=== PATIENT | male | born 1975 | race Caucasian/White ===

== ENCOUNTER 2020-06-15 10:31 | Outpatient (REF) | payer MEDICAID, SELFPAY | END 2020-06-15 10:32 | disposition home or self-care (01) | LOC: HO.LAB 10:31 | PROVIDERS: Visit Provider Internal Medicine | DX: Z20.822 Contact with and (suspected) exposure to COVID-19 (principal) | CPT/HCPCS: 36415; C9803; U0003 ==

== ENCOUNTER 2022-05-23 19:31 | Emergency (ER) | payer MEDICAID, SELFPAY ==
[2022-05-23 19:34] VITALS: BP 146/88; PULSE 74; RESP 18; O2SAT 100; BMI 24.1
--- NOTE | 2022-05-23 19:36 | ED.GENADULT ---
HPI - General Adult General Chief complaint: Abdominal Pain Stated complaint: Abdominal pain Time Seen by Provider: 05/23/22 21:08 Related Data Previous Rx's Medication Instructions Recorded docusate sodium 100 mg capsule 100 mg PO BID #20 caps 05/23/22 (Colace) ibuprofen 800 mg tablet 800 mg PO Q8H PRN pain #30 tabs 05/23/22 Allergies Allergy/AdvReac Type Severity Reaction Status Date / Time No Known Allergies Allergy Unverified 02/13/20 16:03 [facility] Social History Social History Alcohol intake: former Smoked in Last 30 Days: Yes Advance Directives: No Advance Directives Information Provided: No Physical Exam ED Vital Signs: BMI result Body Mass Index 24.1 Course Course Course Narrative: RME; Patient presents to the ED for LLQ abdominal pain. patient is well appearing. Medications Administered Discontinued Medications Generic Name Dose Route Start Last Admin Trade Name Freq PRN Reason Stop Dose Admin Ketorolac Tromethamine 30 mg 05/23/22 22:05 05/23/22 22:09 Ketorolac Tromethamine 30 Mg/Ml Vial IM 05/23/22 22:06 30 mg ONCE ONE Administration Medical Decision Making Lab Data 05/23/22 20:24 05/23/22 20:24 Labs: Lab Results 05/23/22 05/23/22 05/23/22 Range/Units 20:24 20:24 20:24 WBC 7.1 (4.8-10.8) X10*3/uL RBC 4.25 L (4.60-5.80) X10*6/uL Hgb 13.3 L (14.0-18.0) g/dl Hct 39.6 L (42.0-52.0) % MCV 93.2 (80.0-98.0) fL MCH 31.3 (27.0-33.0) pg MCHC 33.6 (31.0-36.0) g/dl RDW 11.9 (11.0-16.0) % Plt Count 124 L (160-400) X10*3/uL MPV 11.3 (9.4-12.4) fL Immature Gran % (Auto) 0.3 (0.0-0.4) % Neut % (Auto) 53.1 (45-73) % Lymph % (Auto) 36.6 (20-40) % [place] % (Auto) 7.4 (2-11) % Eos % (Auto) 2.3 (0-4) % Baso % (Auto) 0.3 (0-2) % Lymph # (Auto) 2.6 (1.2-4.9) X10*3/uL [place] # (Auto) 0.5 (0.1-1.2) X10*3/uL Eos # (Auto) 0.2 (0.0-0.4) X10*3/uL Baso # (Auto) 0.0 (0.0-0.2) X10*3/uL Abs Immat Gran (auto) 0.02 (0.00-0.03) X10*3/uL Absolute Neuts (auto) 3.8 (2.0-8.3) x10*3/uL Absolute Nucleated RBC 0.000 (0.0-0.012) X10*3/uL Nucleated RBC % (auto) 0.0 (0.0-0.2) /100WBC Smear Tech's Comments VERIFIED PT 11.8 (10.0-13.1) SEC INR 1.0 (0.9-1.1) APTT 31.6 (26.0-36.4) SEC Sodium 137 (135-145) mmol/L Potassium 4.1 (3.3-5.1) mmol/L Chloride 104 (96-108) mmol/L Carbon Dioxide 25 (22-29) mmol/L Anion Gap 12 (12-20) BUN 13 (9-16) mg/dL Creatinine 1.05 (0.5-1.4) mg/dL Estim Creat Clear Calc 74.8 Estimated GFR > 60 Random Glucose 107 (60-115) mg/dL Calcium 9.0 (8.4-10.2) mg/dL Total Bilirubin 0.5 (0.0-1.0) mg/dL AST 19 (5-37) U/L ALT 16 (0-40) U/L Alkaline Phosphatase 37 L (39-117) U/L Total Protein 7.5 (6.5-8.0) g/dL Albumin 4.3 (3.5-5.0) g/dL Urine Color Urine Appearance Urine pH (5.0-9.0) Ur Specific [place] (1.005-1.025) Urine Protein (Neg-Trace) mg/dL Urine Glucose (UA) (Negative) mg/dL Urine Ketones (Negative) mg/dL Urine Blood (Negative) Urine Nitrite (Negative) Ur Leukocyte Esterase (Negative) 05/23/22 Range/Units 20:24 WBC (4.8-10.8) X10*3/uL RBC (4.60-5.80) X10*6/uL Hgb (14.0-18.0) g/dl Hct (42.0-52.0) % MCV (80.0-98.0) fL MCH (27.0-33.0) pg MCHC (31.0-36.0) g/dl RDW (11.0-16.0) % Plt Count (160-400) X10*3/uL MPV (9.4-12.4) fL Immature Gran % (Auto) (0.0-0.4) % Neut % (Auto) (45-73) % Lymph % (Auto) (20-40) % [place] % (Auto) (2-11) % Eos % (Auto) (0-4) % Baso % (Auto) (0-2) % Lymph # (Auto) (1.2-4.9) X10*3/uL [place] # (Auto) (0.1-1.2) X10*3/uL Eos # (Auto) (0.0-0.4) X10*3/uL Baso # (Auto) (0.0-0.2) X10*3/uL Abs Immat Gran (auto) (0.00-0.03) X10*3/uL Absolute Neuts (auto) (2.0-8.3) x10*3/uL Absolute Nucleated RBC (0.0-0.012) X10*3/uL Nucleated RBC % (auto) (0.0-0.2) /100WBC Smear Tech's Comments PT (10.0-13.1) SEC INR (0.9-1.1) APTT (26.0-36.4) SEC Sodium (135-145) mmol/L Potassium (3.3-5.1) mmol/L Chloride (96-108) mmol/L Carbon Dioxide (22-29) mmol/L Anion Gap (12-20) BUN (9-16) mg/dL Creatinine (0.5-1.4) mg/dL Estim Creat Clear Calc Estimated GFR Random Glucose (60-115) mg/dL Calcium (8.4-10.2) mg/dL Total Bilirubin (0.0-1.0) mg/dL AST (5-37) U/L ALT (0-40) U/L Alkaline Phosphatase (39-117) U/L Total Protein (6.5-8.0) g/dL Albumin (3.5-5.0) g/dL Urine Color Yellow Urine Appearance Clear Urine pH 6.0 (5.0-9.0) Ur Specific [place] 1.015 (1.005-1.025) Urine Protein Negative (Neg-Trace) mg/dL Urine Glucose (UA) Negative (Negative) mg/dL Urine Ketones Negative (Negative) mg/dL Urine Blood Negative (Negative) Urine Nitrite Negative (Negative) Ur Leukocyte Esterase Negative (Negative) Discharge Plan Discharge Clinical Impression: Epiploic appendagitis Patient Disposition: Home, Self-Care Instructions: Acute Abdominal Pain (ED) Additional Instructions: your lab work here in the emergency department was normal. Your CT scan showed a benign condition called epiploic appendagitis. Fifty typically requires no treatment other than anti-inflammatory pain medication. If you develop significant fevers or the pain gets worse with the constipation does not improve, return to the emergency department for further treatment. Prescriptions: New docusate sodium [Colace] 100 mg capsule 100 mg PO BID Qty: 20 0RF ibuprofen 800 mg tablet 800 mg PO Q8H PRN (Reason: pain) Qty: 30 0RF Interventions: ED Discharge Assessment Last Done: 05/23/22 22:13 Discharge Date/Time: 05/23/22 22:14
[2022-05-23 20:33] LABS: Basophils Percent Auto 0.3 % (0-2); Lymphocytes Absolute Auto 2.6 X10*3/uL (1.2-4.9); Mean Corpuscular Hemoglobin 31.3 pg (27.0-33.0); PLT CLUMP 1; Red Cell Distribution Width 11.9 % (11.0-16.0); SCAN SMEAR FLAG 1
[2022-05-23 20:34] LABS: Appearance Urine Clear; Color Urine Yellow; Glucose Urine UA Negative (Negative); Leukocyte Esterase Urine Negative (Negative); Nitrite Urine Negative (Negative); Specific Gravity - Urine 1.015 (1.005-1.025); Urine Blood Negative (Negative); Urine Ketones Negative (Negative); Urine Protein Negative (Neg-Trace)
[2022-05-23 20:35] LABS: Eosinophils Absolute Auto 0.2 X10*3/uL (0.0-0.4); Eosinophils Percent Auto 2.3 % (0-4); Hematocrit 39.6 % (42.0-52.0); Hemoglobin 13.3 g/dl (14.0-18.0); Imm Gran Abs Auto 0.02 X10*3/uL (0.00-0.03); Imm Gran Pct Auto 0.3 % (0.0-0.4); Lymphocytes Percent Auto 36.6 % (20-40); MANUAL DIFF FLAG SCAN; Mean Corpuscular HGB Conc 33.6 g/dl (31.0-36.0); Mean Corpuscular Volume 93.2 fL (80.0-98.0); Mean Platelet Volume 11.3 fL (9.4-12.4); Monocytes Absolute Auto 0.5 X10*3/uL (0.1-1.2); Monocytes Percent Auto 7.4 % (2-11); Neutrophils Absolute Auto 3.8 x10*3/uL (2.0-8.3); Neutrophils Percent Auto 53.1 % (45-73); Red Blood Count 4.25 X10*6/uL (4.60-5.80)
[2022-05-23 20:39] LABS: Prothrombin Time 11.8 SEC (10.0-13.1)
[2022-05-23 20:41] LABS: Partial Thromboplastin Time 31.6 SEC (26.0-36.4); Platelet Count 124 X10*3/uL (160-400); SLIDE REVIEW VERIFIED; White Blood Count 7.1 X10*3/uL (4.8-10.8)
[2022-05-23 20:46] LABS: Alanine Aminotransferase 16 U/L (0-40); Albumin Level 4.3 g/dL (3.5-5.0); Alkaline Phosphatase 37 U/L (39-117); Anion Gap 12 (12-20); Aspartate Amino Transferase 19 U/L (5-37); Bilirubin Total 0.5 mg/dL (0.0-1.0); Blood Urea Nitrogen 13 mg/dL (9-16); Carbon Dioxide 25 mmol/L (22-29); Chloride 104 mmol/L (96-108); Creatinine Clr Calc Pharmacy 74.8; Estimated Glomerular Filt Rate > 60; Glucose Random 107 mg/dL (60-115); Potassium 4.1 mmol/L (3.3-5.1); Sodium 137 mmol/L (135-145); Total Protein 7.5 g/dL (6.5-8.0)
[2022-05-23 20:57] VITALS: BP 124/78; PULSE 72; RESP 18; TEMP 37.1; O2SAT 99
--- NOTE | 2022-05-23 21:15 | ED.ABDPAIN ---
HPI - Abdominal Pain General Chief Complaint: Abdominal Pain Stated Complaint: Abdominal pain Time Seen by Provider: 05/23/22 21:08 Source: patient and old records reviewed History of Present Illness HPI narrative: patient diagnosed with COVID 6 days ago although states has minimal symptoms. No cough or shortness of breath. No significant rhinorrhea or other URI symptoms. No diarrhea. No nausea vomiting. Some constipation. He states 2 days ago he began to have significant left lower quadrant abdominal pain. He has never had this before. He does have a history constipation but has never caused this. No fevers or chills. No precipitating causes No urinary symptoms. No radiation to his flank. Related Data Previous Rx's Medication Instructions Recorded docusate sodium 100 mg capsule 100 mg PO BID #20 caps 05/23/22 (Colace) ibuprofen 800 mg tablet 800 mg PO Q8H PRN pain #30 tabs 05/23/22 Allergies Allergy/AdvReac Type Severity Reaction Status Date / Time No Known Allergies Allergy Unverified 02/13/20 16:03 Review of Systems Comments: No fevers or chills Comments: no chest pain Comments: no dyspnea or cough Comments: abdominal pain as mentioned with constipation but no nausea vomiting or diarrhea. Pain is greatest in the left lower quadrant Comments: no dysuria or hematuria. No flank pain Comments: no rash PMFSH Social History Social History Alcohol intake: former Smoked in Last 30 Days: Yes Advance Directives: No Advance Directives Information Provided: No Physical Exam ED Vital Signs: Vital Signs - 24 hr 05/23/22 19:34 05/23/22 20:57 Temperature 98.7 F Pulse Rate 74 72 Respiratory Rate 18 18 Blood Pressure 146/88 H 124/78 Pulse Oximetry 100 99 Oxygen Delivery Method Room Air BMI result Body Mass Index 24.1 Const Other: awake and alert. No acute distress. Vital signs stable Resp Other: clear and equal bilaterally without wheezes rales rhonchi Cardio Other: regular rate and rhythm without murmurs rubs or gallops GI Other: soft. Tender left lower quadrant with guarding but no rebound Skin Other: warm pink and dry without rash Neuro Other: nonfocal neuro exam Course Course Course Narrative: 21:34. Lab work shows normal CBC with white count of 7.1. Chemistries normal including creatinine. LFTs unremarkable. CT scan shows epiploic appendagitis without other abnormalities. Results explained to the patient. He understands that up blood appendicitis is typically benign and will return if symptoms worsen for any reason. Otherwise treatment is symptomatic with anti-inflammatory medication Medical Decision Making Medical Decision Making MDM Narrative: left lower quadrant abdominal pain and tenderness. Differential would include diverticulitis, constipation, colitis. Lab Data Result Diagrams: 05/23/22 20:24 05/23/22 20:24 Labs: Lab Results 05/23/22 05/23/22 05/23/22 Range/Units 20:24 20:24 20:24 WBC 7.1 (4.8-10.8) X10*3/uL RBC 4.25 L (4.60-5.80) X10*6/uL Hgb 13.3 L (14.0-18.0) g/dl Hct 39.6 L (42.0-52.0) % MCV 93.2 (80.0-98.0) fL MCH 31.3 (27.0-33.0) pg MCHC 33.6 (31.0-36.0) g/dl RDW 11.9 (11.0-16.0) % Plt Count 124 L (160-400) X10*3/uL MPV 11.3 (9.4-12.4) fL Immature Gran % (Auto) 0.3 (0.0-0.4) % Neut % (Auto) 53.1 (45-73) % Lymph % (Auto) 36.6 (20-40) % [place] % (Auto) 7.4 (2-11) % Eos % (Auto) 2.3 (0-4) % Baso % (Auto) 0.3 (0-2) % Lymph # (Auto) 2.6 (1.2-4.9) X10*3/uL [place] # (Auto) 0.5 (0.1-1.2) X10*3/uL Eos # (Auto) 0.2 (0.0-0.4) X10*3/uL Baso # (Auto) 0.0 (0.0-0.2) X10*3/uL Abs Immat Gran (auto) 0.02 (0.00-0.03) X10*3/uL Absolute Neuts (auto) 3.8 (2.0-8.3) x10*3/uL Absolute Nucleated RBC 0.000 (0.0-0.012) X10*3/uL Nucleated RBC % (auto) 0.0 (0.0-0.2) /100WBC Smear Tech's Comments VERIFIED PT 11.8 (10.0-13.1) SEC INR 1.0 (0.9-1.1) APTT 31.6 (26.0-36.4) SEC Sodium 137 (135-145) mmol/L Potassium 4.1 (3.3-5.1) mmol/L Chloride 104 (96-108) mmol/L Carbon Dioxide 25 (22-29) mmol/L Anion Gap 12 (12-20) BUN 13 (9-16) mg/dL Creatinine 1.05 (0.5-1.4) mg/dL Estim Creat Clear Calc 74.8 Estimated GFR > 60 Random Glucose 107 (60-115) mg/dL Calcium 9.0 (8.4-10.2) mg/dL Total Bilirubin 0.5 (0.0-1.0) mg/dL AST 19 (5-37) U/L ALT 16 (0-40) U/L Alkaline Phosphatase 37 L (39-117) U/L Total Protein 7.5 (6.5-8.0) g/dL Albumin 4.3 (3.5-5.0) g/dL Urine Color Urine Appearance Urine pH (5.0-9.0) Ur Specific [place] (1.005-1.025) Urine Protein (Neg-Trace) mg/dL Urine Glucose (UA) (Negative) mg/dL Urine Ketones (Negative) mg/dL Urine Blood (Negative) Urine Nitrite (Negative) Ur Leukocyte Esterase (Negative) 05/23/22 Range/Units 20:24 WBC (4.8-10.8) X10*3/uL RBC (4.60-5.80) X10*6/uL Hgb (14.0-18.0) g/dl Hct (42.0-52.0) % MCV (80.0-98.0) fL MCH (27.0-33.0) pg MCHC (31.0-36.0) g/dl RDW (11.0-16.0) % Plt Count (160-400) X10*3/uL MPV (9.4-12.4) fL Immature Gran % (Auto) (0.0-0.4) % Neut % (Auto) (45-73) % Lymph % (Auto) (20-40) % [place] % (Auto) (2-11) % Eos % (Auto) (0-4) % Baso % (Auto) (0-2) % Lymph # (Auto) (1.2-4.9) X10*3/uL [place] # (Auto) (0.1-1.2) X10*3/uL Eos # (Auto) (0.0-0.4) X10*3/uL Baso # (Auto) (0.0-0.2) X10*3/uL Abs Immat Gran (auto) (0.00-0.03) X10*3/uL Absolute Neuts (auto) (2.0-8.3) x10*3/uL Absolute Nucleated RBC (0.0-0.012) X10*3/uL Nucleated RBC % (auto) (0.0-0.2) /100WBC Smear Tech's Comments PT (10.0-13.1) SEC INR (0.9-1.1) APTT (26.0-36.4) SEC Sodium (135-145) mmol/L Potassium (3.3-5.1) mmol/L Chloride (96-108) mmol/L Carbon Dioxide (22-29) mmol/L Anion Gap (12-20) BUN (9-16) mg/dL Creatinine (0.5-1.4) mg/dL Estim Creat Clear Calc Estimated GFR Random Glucose (60-115) mg/dL Calcium (8.4-10.2) mg/dL Total Bilirubin (0.0-1.0) mg/dL AST (5-37) U/L ALT (0-40) U/L Alkaline Phosphatase (39-117) U/L Total Protein (6.5-8.0) g/dL Albumin (3.5-5.0) g/dL Urine Color Yellow Urine Appearance Clear Urine pH 6.0 (5.0-9.0) Ur Specific [place] 1.015 (1.005-1.025) Urine Protein Negative (Neg-Trace) mg/dL Urine Glucose (UA) Negative (Negative) mg/dL Urine Ketones Negative (Negative) mg/dL Urine Blood Negative (Negative) Urine Nitrite Negative (Negative) Ur Leukocyte Esterase Negative (Negative) Discharge Plan Discharge Clinical Impression: Epiploic appendagitis Patient Disposition: Home, Self-Care Instructions: Acute Abdominal Pain (ED) Additional Instructions: your lab work here in the emergency department was normal. Your CT scan showed a benign condition called epiploic appendagitis. Fifty typically requires no treatment other than anti-inflammatory pain medication. If you develop significant fevers or the pain gets worse with the constipation does not improve, return to the emergency department for further treatment. Prescriptions: New docusate sodium [Colace] 100 mg capsule 100 mg PO BID Qty: 20 0RF ibuprofen 800 mg tablet 800 mg PO Q8H PRN (Reason: pain) Qty: 30 0RF
[2022-05-23 22:03] VITALS: BP 116/73; PULSE 70; RESP 18; O2SAT 99
== END 2022-05-23 22:14 | disposition home or self-care (01) ==
PROVIDERS: Physician Assistant; Emergency Provider Emergency Medicine; PCP Internal Medicine Geriatric Medicine
DX: K63.89 Other specified diseases of intestine (principal); R10.32 Left lower quadrant pain
CPT/HCPCS: 36415; 74176; 80053; 81003; 85025; 85610; 85730; 96372; 99284; J1885

== ENCOUNTER 2022-11-27 07:40 | Emergency (ER) | payer MEDICAID, SELFPAY ==
[2022-11-27 07:53] VITALS: BP 122/88; PULSE 108; RESP 18; TEMP 36.5; O2SAT 110; BMI 26.0
[2022-11-27 07:59] VITALS: BP 152/96; PULSE 106; RESP 18; O2SAT 100
--- NOTE | 2022-11-27 08:02 | PC.NURSE ---
Alert and oriented. woke up this morning and was feeling sob, difficulty breathing, and noticed a rash on legs and abdomen. States rash was itchy and burning this morning but took a Benadryl and itch and burning stopped. Red non -raised rash observed across abdomen and bilateral legs. did not eat or drink anything different than usual yesterday and was not outside around any trees or plants. takes methadone from [facility] but used heroin yesterday morning. was wheezing this morning, not wheezing heard at this time.
--- NOTE | 2022-11-27 08:34 | ED.GENADULT ---
HPI - General Adult General Chief complaint: General Medical Stated complaint: Diff breathing Time Seen by Provider: 11/27/22 08:34 Source: patient Mode of arrival: ambulatory Limitations: no limitations History of Present Illness HPI narrative: 47-year-old male who presents emergency department for evaluation of shortness of breath and urticarial rash. Patient states that he woke up this morning around 05:00 hours and felt short of breath. He also noticed a rash on his chest and arms. He states that he has had hive/urticarial rashes frequent in the past specially when he was incarcerated. He has never had allergy testing. He states he used his albuterol inhaler 2 puffs with some improvement of his symptoms. He also take Benadryl 25 mg orally with no improvement of his rash. Patient states that he had a uses inhaler again 1 hour later, he was concerned about his rash and shortness of breath so came to emergency department for evaluation. He denied fever, chills, rhinorrhea, sore throat, cough, chest pain. He states that he had nausea but no vomiting. He had 1 episode of diarrhea today. He denied myalgias arthralgias. Related Data Previous Rx's Medication Instructions Recorded docusate sodium 100 mg capsule 100 mg PO BID #20 caps 05/23/22 (Colace) ibuprofen 800 mg tablet 800 mg PO Q8H PRN pain #30 tabs 05/23/22 cetirizine 10 mg tablet (Zyrtec) 10 mg PO DAILY PRN rash,hives #30 11/27/22 tabs diphenhydramine HCl 25 mg capsule 50 mg PO QID PRN allergic reaction 11/27/22 (Benadryl) #30 caps prednisone 20 mg tablet 60 mg PO DAILY 5 days #15 tabs 11/27/22 Allergies Allergy/AdvReac Type Severity Reaction Status Date / Time No Known Allergies Allergy Verified 11/27/22 07:53 Review of Systems Review of Systems: Yes all other systems are reviewed and are negative [facility] Social History Social History Alcohol intake: former Smoked in Last 30 Days: Yes Substance Use Type: Heroin Substance Use Frequency: Chronic Longstanding Last Used Substance: Days (ago) Any prior treatment program specific to substance use: Yes Advance Directives: No Advance Directives Information Provided: Yes Physical Exam ED Vital Signs: Vital Signs - 24 hr 11/27/22 07:53 11/27/22 07:59 Temperature 97.7 F Pulse Rate 108 H 106 H Respiratory Rate 18 18 Blood Pressure 122/88 152/96 H Pulse Oximetry 110 H 100 Oxygen Delivery Method Room Air Room Air BMI result Body Mass Index 26.0 Const Other: Awake, alert, male patient, very pleasant cooperative, does not appear to be in distress, answers all questions appropriately HENCT Head: Yes normal to inspection, Yes normocephalic and Yes atraumatic Ears: external ears normal General nose exam: Normal external nose present Face and sinus: Yes normal facial exam Mouth: Normal oral and palatal mucosa present Throat: Yes posterior oropharynx normal Eyes General: appearance normal, both eyes and all related structures Neck Neck: Yes normal visual inspection, Yes no lymphadenopathy, Yes trachea midline and Yes supple Chest Chest palpation & inspection: normal inspection of the chest and normal palpation of entire chest wall Resp Effort & Inspection: normal respiratory effort and able to speak in complete sentences Auscultation: clear to auscultation bilaterally Cardio Rate: regular rate Rhythm: regular rhythm Heart sounds: S1 normal heart sound present, S2 normal heart sound present and no murmurs GI Inspection: Yes normal to inspection Palpation (GI): Soft to palpation, nontender and no guarding Auscultation: normal bowel sounds General: Yes no CVA tenderness Back/Spine/Pelvis Back: no CVA tenderness Skin Other: Patient has an urticarial rash on his chest back and arms Neuro Cognition (Neuro): normal cognition Motor exam (neuro): 5/5 motor strength present throughout Extrem General: Yes normal to inspection Psych Appearance: grossly normal Speech and movement: Normal speech and movement present Affect: normal affect Medications Administered Discontinued Medications Generic Name Dose Route Start Last Admin Trade Name Freq PRN Reason Stop Dose Admin Prednisone 60 mg 11/27/22 08:45 11/27/22 08:50 Prednisone 20 Mg Tablet PO 11/27/22 08:46 60 mg ONCE ONE Administration Medical Decision Making Medical Decision Making [facility] Narrative: 47-year-old male who presents emergency department for evaluation of urticarial rash in shortness of breath which started at 05:00 hours. Patient's history of asthma and frequent urticarial rash from unclear allergen. Patient's vital signs revealed an elevated blood pressure and elevated pulse otherwise were unremarkable, O2 saturation was 100% on room air. Lung exam was clear pain. Patient's presentation is consistent with an allergic reaction to an unknown allergen causing his acid-base escobar of his asthma. Patient was given prednisone 60 mg orally. He did not want to take anymore Benadryl since he took Benadryl prior to coming to emergency department. Patient was given a prescription for Benadryl 50 mg 4 times a day as needed for rash, prednisone 60 mg once a day for 5 days and Zyrtec 10 mg daily for his recurrent urticaria. Differential Diagnosis Differential Diagnoses: The differential diagnosis associated with the presentation includes Differential diagnosis includes but is not limited to pneumonia, viral syndrome, allergic reaction, asthma exacerbation Chronic Conditions Patient?s care impacted by: Other (Asthma) Discharge Plan Discharge Clinical Impression: Asthma exacerbation, Urticaria Patient Disposition: Home, Self-Care Instructions: Asthma (ED), Urticaria (ED) Additional Instructions: Your shortness of breath and rash are consistent with an allergic reaction which caused her asthma to flare up. Take Benadryl (diphenhydramine) 25 mg pills, 2 pills 4 times a day for the next 2-3 days to help reduce the swelling and itchiness in the area of your rash. This medication will make you sleepy. Do not drive or work while taking this medication. Take prednisone 20 mg pills, 3 pills once a day for 5 days. While you are taking prednisone, do not take any NSAIDs (Motrin, Advil, ibuprofen, Aleve, naproxen). Continue to use your albuterol inhaler 2 puffs every 4-6 hours as needed for shortness of breath. If you continue to get hives/urticaria then I want you to take Zyrtec 10 mg once a day to try to prevent recurrence of the symptoms Prescriptions: New prednisone 20 mg tablet 60 mg PO DAILY 5 Days Qty: 15 0RF diphenhydramine HCl [Benadryl] 25 mg capsule 50 mg PO QID PRN (Reason: allergic reaction) Qty: 30 0RF cetirizine [Zyrtec] 10 mg tablet 10 mg PO DAILY PRN (Reason: rash,hives) Qty: 30 0RF No Action docusate sodium [Colace] 100 mg capsule 100 mg PO BID Qty: 20 0RF ibuprofen 800 mg tablet 800 mg PO Q8H PRN (Reason: pain) Qty: 30 0RF
--- NOTE | 2022-11-27 09:23 | PC.NURSE ---
Reviewed discharge plan with patient who verbalized understanding
== END 2022-11-27 09:23 | disposition home or self-care (01) ==
PROVIDERS: Emergency Provider Emergency Medicine Emergency Medical Services; PCP Internal Medicine Geriatric Medicine
DX: J45.901 Unspecified asthma with (acute) exacerbation (principal); L50.9 Urticaria, unspecified; R06.02 Shortness of breath
CPT/HCPCS: 99283; 99284

== ENCOUNTER 2023-06-13 05:39 | Emergency (ER) | payer MEDICAID, SELFPAY ==
[2023-06-13 05:45] VITALS: BP 108/68; PULSE 84; O2SAT 96
[2023-06-13 05:59] VITALS: BP 108/63; PULSE 93; RESP 18; TEMP 36.4; O2SAT 100; BMI 26.4
--- NOTE | 2023-06-13 06:00 | ED_ITS ---
HPI - General Adult General Chief complaint: Allergic Reaction Stated complaint: ?ALLERGIC RXN,BLE HIVES,VOMITING,NKA PER EMS Time Seen by Provider: 06/13/23 05:49 Source: patient Mode of arrival: EMS Limitations: no limitations History of Present Illness HPI narrative: Patient comes to the emergency room complaining of an allergic reaction, hives around the chest abdomen pelvis and lower extremities. Patient states that he went to sleep and when he woke up approximately 1/2 hour prior to arrival, patient had hives. Patient states that he does not know what caused the allergic reaction. Patient denies any chest pain or difficulty breathing. Patient states that prior to arrival he took Zyrtec which she takes for seasonal allergies and 1 tablet of Benadryl. Related Data Previous Rx's Medication Instructions Recorded docusate sodium 100 mg capsule 100 mg PO BID #20 caps 05/23/22 (Colace) ibuprofen 800 mg tablet 800 mg PO Q8H PRN pain #30 tabs 05/23/22 cetirizine 10 mg tablet (Zyrtec) 10 mg PO DAILY PRN rash,hives #30 11/27/22 tabs diphenhydramine HCl 25 mg capsule 50 mg (2 x 25 mg) PO QID PRN 11/27/22 (Benadryl) allergic reaction #30 caps prednisone 20 mg tablet 60 mg (3 x 20 mg) PO DAILY 5 days 11/27/22 #15 tabs epinephrine 0.3 mg/0.3 mL 0.3 mg (0.3 mL) IM Q4H PRN 06/13/23 injection, auto-injector (EpiPen) anaphylaxis #2 ea Allergies Allergy/AdvReac Type Severity Reaction Status Date / Time No Known Allergies Allergy Verified 06/13/23 06:02 Review of Systems Review of Systems: Constitutional : No Weight loss, No Fever, No Chills, No Night Sweats, No Fatigue, No Malaise ENT/Mouth : No Hearing loss, No Ear Pain, No Nasal Congestion, No Sinus Pain, No Hoarseness, No sore throat, No Rhinorrhea, No Swallowing Difficulty Eyes: No Eye Pain, No Swelling, No Redness, No Foreign Body, No Discharge, No Vision Changes Cardiovascular : No Chest Pain, No SOB, No Dyspnea on Exertion, No Orthopnea, No Edema, No Palpitations Respiratory : No Cough, No Sputum, No Wheezing, No Smoke Exposure, No Dyspnea Gastrointestinal : No Nausea, No Vomiting, No Diarrhea, No Constipation, No abdominal Pain, No Hematochezia, No Melena Genitourinary : no irregular bleeding, No Dysuria, No Urinary Frequency, No Hematuria, No Urinary Incontinence, No Urgency, No Flank Pain, No Urinary Flow Changes, No Hesitancy Musculoskeletal : No joint pain, No Myalgias, No Joint Swelling Skin : Complaining of were tachycardia, very itchy Neuro : No Weakness, No Numbness, No Paresthesias, No Loss of Consciousness, No Dizziness, No Headache Psych : No Anxiety/Panic, No Depression, No SI/HI/AH/VH, No Social Issues, Heme/Lymph: No Bruising, No Bleeding,No Lymphadenopathy Endocrine : No Polyuria, No Polydipsia, No Temperature Intolerance [facility] Social History Social History Alcohol intake: former Smoked in Last 30 Days: Yes Use of substances other than those prescribed or required for medical reasons: Yes Substance Use Type: Heroin Substance Use Frequency: Daily Last Used Substance: Days (ago) Advance Directives: No Advance Directives Information Provided: No Physical Exam ED Vital Signs: Vital Signs - 24 hr 06/13/23 05:59 Temperature 97.5 F Pulse Rate 93 Respiratory Rate 18 Blood Pressure 108/63 Pulse Oximetry 100 Oxygen Delivery Method Room Air BMI result Body Mass Index 26.4 Const Other: Appearance: Alert. Oriented X3. No acute distress. Eyes: Pupils equal, round and reactive to light. ENT: Pharynx normal. No angioedema Neck: Normal inspection. Neck supple. No lymph nodes noted. No crepitus CVS: Normal heart rate and rhythm. Pulses normal. Normal S1 and S2 Respiratory: No respiratory distress. Breath sounds normal. No Wheezing. No rales Abdomen: Soft and nontender. No rigidity. No distention. Skin: Skin warm and dry. Normal skin color. Normal skin turgor. Hives in chest abdomen pelvis back and lower extremities Extremities: No lower extremity edema. No Lacerations. No Rash Neuro: Oriented X 3. No motor deficit. No sensory deficit. Moving all extremities. No slurred speech. CN 2 through 12 grossly intact Psych: calm, cooperative, normal affect Course Course Course Narrative: -patient receiving IV fluids, famotidine, Solu-Medrol and IV fluids. Epinephrine IM is not indicated at this time. Medications Administered Generic Name Dose Route Start Last Admin Trade Name Freq PRN Reason Stop Dose Admin Sodium Chloride 1,000 mls @ 999 mls/hr 06/13/23 05:54 06/13/23 06:10 Ns IVCONT 06/13/23 06:54 999 mls/hr .Q1H1M ONE Administration Discontinued Medications Generic Name Dose Route Start Last Admin Trade Name Freq PRN Reason Stop Dose Admin Diphenhydramine HCl 50 mg 06/13/23 05:54 06/13/23 06:09 Diphenhydramine Hcl 50 Mg/Ml Vial IVPUSH 06/13/23 05:55 50 mg ONCE ONE Administration Famotidine 20 mg 06/13/23 05:54 06/13/23 06:09 Famotidine/Pf 20 Mg/2 Ml Vial IVPUSH 06/13/23 05:55 20 mg ONCE ONE Administration Methylprednisolone Sodium Succinate 125 mg 06/13/23 05:54 06/13/23 06:09 Methylprednisolone Sod Succ 125 Mg/2 Ml Vial IVPUSH 06/13/23 05:55 125 mg ONCE ONE Administration Medical Decision Making Medical Decision Making MDM Narrative: -patient's rash completely resolved with the above-mentioned medication. Patient feeling much better but feels very somnolent -other than feeling drowsy/somnolent, patient is asymptomatic. -patient instructed to follow-up with his primary care physician, patient may need to be referred to space operations officer for skin scratch test Differential Diagnosis Differential Diagnoses: The differential diagnosis associated with the presentation includes (Allergic reaction) Admission/Observation Consideration of admission/observation: Escalation of care including admission/observation considered (Considering patient's initial presentation, patient was considered) Critical Care Time Critical Care Time Critical Care Time: Yes Total Critical Care Time: 45 Attestation: I have personally provided critical care time. Time includes review of lab data, radiology results, discussion with consultants, and monitoring for potential decompensation. Intervention performed as documented. Discharge Plan Discharge Clinical Impression: Allergic reaction Patient Disposition: Home, Self-Care Instructions: General Allergic Reaction (ED) Additional Instructions: If you have a severe allergic reaction, use your EpiPen. Please ask your pharmacist to show you how to use it . Do not wait for an emergency to figure out how to use it. A severe allergic reaction means that you have trouble breathing or you feel that your throat is closing. A rash by itself is not an indication to use the EpiPen. Please follow-up with your primary care physician tomorrow. If you have any worsening or new symptoms, please return to the emergency room or call 911 Prescriptions: New epinephrine [EpiPen] 0.3 mg/0.3 mL auto-injector 0.3 mg IM Q4H PRN (Reason: anaphylaxis) Qty: 2 0RF Rx Instructions: Use only for severe allergic reaction No Action docusate sodium [Colace] 100 mg capsule 100 mg PO BID Qty: 20 0RF ibuprofen 800 mg tablet 800 mg PO Q8H PRN (Reason: pain) Qty: 30 0RF prednisone 20 mg tablet 60 mg PO DAILY 5 Days Qty: 15 0RF diphenhydramine HCl [Benadryl] 25 mg capsule 50 mg PO QID PRN (Reason: allergic reaction) Qty: 30 0RF cetirizine [Zyrtec] 10 mg tablet 10 mg PO DAILY PRN (Reason: rash,hives) Qty: 30 0RF
[2023-06-13] MEDS: diphenhydrAMINE HCL 50 MG/ML VIAL IVPUSH (06:09)
[2023-06-13] MEDS: methylPREDNISolone Sod Succ 125 MG/2 ML VIAL IVPUSH (06:09)
[2023-06-13] MEDS: Famotidine/PF 20 MG/2 ML VIAL IVPUSH (06:09)
[2023-06-13] MEDS: 0.9 % Sodium Chloride 1,000 ML 999 ML IVCONT (06:10)
[2023-06-13 07:43] VITALS: BP 107/64; PULSE 99; RESP 14; O2SAT 100
== END 2023-06-13 09:35 | disposition home or self-care (01) ==
PROVIDERS: Emergency Provider Emergency Medicine; PCP Internal Medicine Geriatric Medicine
DX: L50.9 Urticaria, unspecified (principal); T78.40XA Allergy, unspecified, initial encounter; X58.XXXA Exposure to other specified factors, initial encounter
CPT/HCPCS: 96361; 96374; 96375; 99284; J1200; J2930

== ENCOUNTER 2023-06-15 09:24 | Outpatient (REF) | payer MEDICAID, SELFPAY ==
--- NOTE | ~2023-06-15 | XR_ITS ---
EXAMINATION: XR CHEST CLINICAL INFORMATION: Shortness of breath x2 weeks COMPARISON: 09/05/2018 TECHNIQUE: 2 views of the chest were obtained. FINDINGS: No significant abnormality is noted involving the heart, lungs, mediastinum, bony thorax or soft tissues. XR/XR chest 2V IMPRESSION: Unremarkable examination.
[2023-06-15 12:01] LABS: MANUAL DIFF FLAG NO
[2023-06-15 12:24] LABS: Basophils Percent Auto 0.6 % (0-2); Eosinophils Percent Auto 0.2 % (0-4); Hematocrit 40.6 % (42.0-52.0); Hemoglobin 13.6 g/dl (14.0-18.0); Imm Gran Abs Auto 0.02 X10*3/uL (0.00-0.03); Imm Gran Pct Auto 0.4 % (0.0-0.4); Lymphocytes Absolute Auto 0.7 X10*3/uL (1.2-4.9); Lymphocytes Percent Auto 14.6 % (20-40); Mean Corpuscular HGB Conc 33.5 g/dl (31.0-36.0); Mean Corpuscular Hemoglobin 31.5 pg (27.0-33.0); Monocytes Absolute Auto 0.5 X10*3/uL (0.1-1.2); Monocytes Percent Auto 10.3 % (2-11); Neutrophils Absolute Auto 3.6 x10*3/uL (2.0-8.3); Neutrophils Percent Auto 73.9 % (45-73); Red Blood Count 4.32 X10*6/uL (4.60-5.80); Red Cell Distribution Width 12.5 % (11.0-16.0); White Blood Count 4.9 X10*3/uL (4.8-10.8)
[2023-06-15 12:28] LABS: Platelet Count 96 X10*3/uL (160-400)
[2023-06-15 13:02] LABS: Alanine Aminotransferase 30 U/L (0-40); Albumin Level 4.4 g/dL (3.5-5.0); Alkaline Phosphatase 33 U/L (39-117); Anion Gap 14 (12-20); Aspartate Amino Transferase 34 U/L (5-37); Bilirubin Total 0.4 mg/dL (0.0-1.0); Blood Urea Nitrogen 17 mg/dL (9-16); Calcium 9.3 mg/dL (8.4-10.2); Carbon Dioxide 24 mmol/L (22-29); Chloride 101 mmol/L (96-108); Estimated Glomerular Filt Rate > 60; Glucose Random 109 mg/dL (60-115); Potassium 4.2 mmol/L (3.3-5.1); Sodium 135 mmol/L (135-145); Total Protein 7.8 g/dL (6.5-8.0)
== END 2023-06-15 09:25 | disposition home or self-care (01) ==
LOC: HO.HHCL 09:24
PROVIDERS: Visit Provider Internal Medicine Geriatric Medicine
DX: I10 Essential (primary) hypertension (principal); R42 Dizziness and giddiness; R06.02 Shortness of breath; F41.9 Anxiety disorder, unspecified; F11.29 Opioid dependence with unspecified opioid-induced disorder; K59.00 Constipation, unspecified; Z80.0 Family history of malignant neoplasm of digestive organs
CPT/HCPCS: 36415; 71046; 80053; 85025

== ENCOUNTER 2023-08-22 09:05 | Outpatient (AMB) | payer MEDICAID, SELFPAY ==
--- NOTE | 2023-08-22 09:06 | MHC.OFFVIS ---
Intake Vital Signs 08/22/23 09:07 Height 5 ft 5 in Weight 154 lb 5.177 oz BMI 25.7 BP 139/90 H Blood Pressure Location Lt brachial Position Sitting Pulse 87 Intake Visit Reasons: Constipation Intake Note: Leopoldo presents in the office as a follow up for constipation. CC: He is here today because of constipation. He also has family hx of colon cancer. Since lactulose - the constipation has gotten a lot better. Learning [employer] Specialist Required: No Allergies No Known Allergies Allergy (Verified 08/22/23 09:07) Medication List - Last Reconciled 08/22/23 by Ritika Verdugo PA-C diphenhydramine HCl (Benadryl) 50 mg (2 x 25 mg) PO QID PRN docusate sodium (Colace) 100 mg PO BID enalapril maleate 10 mg PO DAILY epinephrine (EpiPen) 0.3 mg (0.3 mL) IM Q4H PRN hydrochlorothiazide 25 mg PO DAILY ibuprofen 800 mg PO Q8H PRN lactulose 15 mL PO DAILY methadone 40 mg PO DAILY HPI HPI Comments History of Present Illness Details 48-year-old male referred with family history of colon cancer as well as chronic constipation Mother - had colon cancer at 83, Lung cancer- 5 years prior He is extremely anxious He is using lactulose with fairly good response-methadone 50 mg daily He does use heroin intermittently. Appetite good No respiratory or cardiac issues No nausea, vomiting, hematemesis, hematochezia fever chills PFSH Family History Mother Colon cancer Social History (Updated 08/22/23 @ 09:31 by Ritika Verdugo PA-C) Household Members Other:: / kids Alcohol intake: former Substance Use Type: Heroin Current occupational status: disabled Review of Systems Const All systems reviewed & are unremarkable except as noted in HPI and below Card Denies chest pain and Denies dyspnea Resp Denies dyspnea GI Reports constipation Psych Reports anxiety Physical Exam Vital Signs: Last Vital Signs Pulse 87 08/22/23 09:07 BP 139/90 H 08/22/23 09:07 BMI result Body Mass Index 25.7 Const General: cooperative, comfortable and alert Orientation/consciousness: patient oriented x3 Limitations: no limitations Eyes Conjunctivae: conjunctival abnormal (Injected bilaterally no drainage) Resp Effort & Inspection: normal respiratory effort and able to speak in complete sentences Auscultation: clear to auscultation bilaterally, no rales, no rhonchi and no wheezes Cardio Rate: regular rate Rhythm: regular rhythm Heart sounds: S1 normal heart sound present and S2 normal heart sound present GI Palpation (GI): Soft to palpation and nontender Auscultation: normal bowel sounds Skin Other: Multiply tattooed General skin exam: no rashes or lesions noted Neuro General: patient oriented x3 Extrem General: Yes full ROM Psych Speech and movement: Clear speech present Affect: Anxious affect present Attitude: cooperative Thought content: Normal thought content present Assessment & Plan Assessment & Plan (1) Family history of colon cancer: Comment: Mother @ 83 Code(s): Z80.0 - Family history of malignant neoplasm of digestive organs (2) Chronic constipation: Comment: Chronic constipation, MLC- methadone Code(s): K59.09 - Other constipation Plan: Continue lactulose HFD (3) Substance abuse: Comment: Heroin intermittent Code(s): F19.10 - Other psychoactive substance abuse, uncomplicated Plan: Reinforced importance of using any unprescribed medications - Plan MG prep Colonoscopy- Reenforce- NO HEROIN Orders: Orders Colonoscopy - GI Use Only Today K59.09 - Other constipation, Z80.0 - Family history of malignant neoplasm of digestive organs Medications: New bisacodyl (Dulcolax (bisacodyl)) Day before procedure @ 12 noon Take 4 tablets by mouth followed by large glass of water 20 mg (4 x 5 mg) PO ONCE 1 day PRN 4 tabs 0RF colonoscopy prep Z12.11 - Encounter for screening for malignant neoplasm of colon polyethylene glycol 3350 (Miralax) Take as directed by mouth the day before your procedure. 238 grams PO ONCE 1 day PRN 238 grams 0RF laxative effect Patient Instructions: A 48 y/o male with familh hx- CRC- herion use- con methadone 50 QD- with chronic constipation Encouraged- NO heroin- he is aware there no major barriers to understanding identify Continue lactulose Colonoscopy MG prep, reviewed literature Adult brother was present Coding Level of Care Code New Pt Level 3 (66982) Diagnoses Family history of colon cancer Z80.0 Chronic constipation K59.09 Substance abuse F19.10 Time Spent (min) 30
[2023-08-22 09:07] VITALS: BP 139/90; PULSE 87; BMI 25.7
== END 2023-08-22 09:38 | disposition home or self-care (01) ==
PROVIDERS: PCP Internal Medicine Geriatric Medicine; Visit Provider Physician Assistant
DX: Z80.0 Family history of malignant neoplasm of digestive organs (principal); K59.09 Other constipation; F19.10 Other psychoactive substance abuse, uncomplicated
CPT/HCPCS: 99203

== ENCOUNTER → 2023-08-22 09:05 | Outpatient (BNVA) | payer MEDICAID, SELFPAY | PROVIDERS: PCP Internal Medicine Geriatric Medicine; Visit Provider Physician Assistant | DX: K59.09 Other constipation (principal); F19.10 Other psychoactive substance abuse, uncomplicated; Z80.0 Family history of malignant neoplasm of digestive organs | CPT/HCPCS: 99212 ==

== ENCOUNTER 2023-09-06 09:52 | Outpatient (REF) | payer MEDICAID, SELFPAY ==
[2023-09-06 11:45] LABS: MANUAL DIFF FLAG NO
[2023-09-06 12:09] LABS: Basophils Absolute Auto 0.1 X10*3/uL (0.0-0.2); Basophils Percent Auto 0.6 % (0-2); Eosinophils Absolute Auto 0.2 X10*3/uL (0.0-0.4); Eosinophils Percent Auto 2.8 % (0-4); Hematocrit 42.2 % (42.0-52.0); Hemoglobin 14.1 g/dl (14.0-18.0); Imm Gran Abs Auto 0.03 X10*3/uL (0.00-0.03); Imm Gran Pct Auto 0.4 % (0.0-0.4); Lymphocytes Absolute Auto 2.1 X10*3/uL (1.2-4.9); Mean Corpuscular HGB Conc 33.4 g/dl (31.0-36.0); Mean Corpuscular Hemoglobin 31.5 pg (27.0-33.0); Mean Corpuscular Volume 94.4 fL (80.0-98.0); Mean Platelet Volume 12.1 fL (9.4-12.4); Monocytes Absolute Auto 0.6 X10*3/uL (0.1-1.2); Monocytes Percent Auto 6.8 % (2-11); Neutrophils Absolute Auto 5.3 x10*3/uL (2.0-8.3); Neutrophils Percent Auto 64.4 % (45-73); Platelet Count 180 X10*3/uL (160-400); Red Blood Count 4.47 X10*6/uL (4.60-5.80); Red Cell Distribution Width 12.6 % (11.0-16.0); White Blood Count 8.2 X10*3/uL (4.8-10.8)
[2023-09-06 12:19] LABS: Alanine Aminotransferase 19 U/L (0-40); Albumin Level 4.3 g/dL (3.5-5.0); Alkaline Phosphatase 36 U/L (39-117); Anion Gap 13 (12-20); Aspartate Amino Transferase 22 U/L (5-37); Bilirubin Total 0.6 mg/dL (0.0-1.0); Blood Urea Nitrogen 13 mg/dL (9-16); Calcium 9.1 mg/dL (8.4-10.2); Carbon Dioxide 26 mmol/L (22-29); Chloride 105 mmol/L (96-108); Estimated Glomerular Filt Rate > 60; Glucose Random 99 mg/dL (60-115); Potassium 3.7 mmol/L (3.3-5.1); Sodium 140 mmol/L (135-145); Total Protein 7.6 g/dL (6.5-8.0)
[2023-09-06 12:38] LABS: HBS Num1 > 1000.00 mIU/mL (0-7.99); HBc Num1 5.01 S/CO (0.00-0.79); HIV AB/AG Nonreactive (Nonreactive); HIV Num 1 0.05 S/CO (0.00-0.99); Hepatitis B Surface Antigen Negative (Negative); ~HepC Num1 14.63 S/CO (0.00-0.79); ~Hepatitis B Surface Antibody REACTIVE (Nonreactive); ~Hepatitis C Antibody Reactive (Nonreactive)
[2023-09-06 13:57] LABS: HBc Num2 4.89 S/CO; HBc Num3 5.18 S/CO; Hepatitis B Core Antibody Reactive (Nonreactive)
[2023-09-07 10:54] LABS: RPR Rapid Plasma Reagin NON-REACTIVE (NON-REACTIVE)
[2023-09-09 18:13] LABS: HCV Log PCR <1.18 NOT DETECTED Log IU/mL (NOT DETECTED); HepC Viral Load <15 NOT DETECTED IU/mL (NOT DETECTED)
== END 2023-09-06 09:53 | disposition home or self-care (01) ==
LOC: HO.HHCL 09:52
PROVIDERS: Visit Provider Internal Medicine Geriatric Medicine
DX: Z11.4 Encounter for screening for human immunodeficiency virus [HIV] (principal); F19.20 Other psychoactive substance dependence, uncomplicated; D69.6 Thrombocytopenia, unspecified; I10 Essential (primary) hypertension; Z86.19 Personal history of other infectious and parasitic diseases
CPT/HCPCS: 36415; 80053; 85025; 86592; 86704; 86706; 86803; 87340; 87389; 87522

== ENCOUNTER 2023-09-12 10:54 | Outpatient (REF) | payer MEDICAID, SELFPAY | END 2023-09-12 10:55 | disposition home or self-care (01) | LOC: HO.US 10:54 | PROVIDERS: PCP Internal Medicine Geriatric Medicine; Visit Provider Internal Medicine Geriatric Medicine | DX: Z13.89 Encounter for screening for other disorder (principal) ==

== ENCOUNTER 2023-09-25 09:46 | Outpatient (REF) | payer MEDICAID, SELFPAY ==
--- NOTE | ~2023-09-25 | US_ITS ---
EXAMINATION: US ABDOMEN COMPLETE CLINICAL INFORMATION: Hep C. COMPARISON: CT abdomen and pelvis 05/23/2022. Ultrasound complete abdomen with liver elastography 10/03/2018. TECHNIQUE: Real-time imaging of the abdominal viscera. FINDINGS: PANCREAS: Obscured by bowel gas. ABDOMINAL AORTA: The proximal, mid, and distal segments are normal in caliber. INFERIOR VENA CAVA: Visualized portions are normal. LIVER: The liver is normal in size. The liver contour is normal. There is diffuse increased liver parenchymal echogenicity, consistent with infiltrative hepatocellular disease. No focal hepatic lesion. There is no intrahepatic biliary duct dilatation seen. GALLBLADDER: Normal. The gallbladder is physiologically distended without evidence of stones, sludge, polyps, wall thickening or pericholecystic fluid. COMMON BILE DUCT: Normal in caliber measuring 0.3 cm in diameter. RIGHT KIDNEY: Normal. No hydronephrosis. No renal calculi or focal parenchymal lesions. The kidney measures 9.8 cm in maximum dimension. LEFT KIDNEY: Normal. No hydronephrosis. No renal calculi or focal parenchymal lesions. The kidney measures 10.6 cm in maximum dimension. SPLEEN: Normal. The spleen measures 9.9 cm in maximum dimension. FREE FLUID: None. US/US abdomen complete IMPRESSION: Echogenic liver consistent with chronic hepatocellular disease. No discrete mass.
== END 2023-09-25 09:47 | disposition home or self-care (01) ==
LOC: HO.US 09:46
PROVIDERS: PCP Internal Medicine Geriatric Medicine; Visit Provider Internal Medicine Geriatric Medicine
DX: D69.6 Thrombocytopenia, unspecified (principal); Z86.19 Personal history of other infectious and parasitic diseases
CPT/HCPCS: 76700

== ENCOUNTER 2023-10-30 10:40 | Emergency (ER) | payer MEDICAID, SELFPAY ==
[2023-10-30 10:52] VITALS: BP 126/90; PULSE 60; O2SAT 100
[2023-10-30 10:55] VITALS: BP 127/52; PULSE 65; RESP 16; TEMP 36.4; O2SAT 100; BMI 27.3
[2023-10-30 10:58] LABS: Glucose, Whole Blood 132 mg/dL (60-115)
--- NOTE | 2023-10-30 11:55 | ED_ITS ---
HPI - General Adult General Chief complaint: Nausea/Vomiting/Diarrhea Stated complaint: N/V S/P METHADONE DOSE FROM CLIN PER EMS Time Seen by Provider: 10/30/23 11:55 Source: patient and RN notes reviewed Mode of arrival: ambulatory Limitations: no limitations History of Present Illness ED Provider: Nikole Kaur PA-C HPI narrative: This is a 48-year-old male, with a history of opioid use disorder on methadone, who presents emergency department with complaints of nausea and vomiting which occurred this morning. Patient reports that he was at a methadone clinic this morning and suddenly felt nauseous and ended up vomiting. He states that he was very sweaty during this episode. At this moment he is feeling much better, he no longer has any nausea or vomiting. Denies any fevers, chills, chest pain, shortness breath, abdominal pain, nausea, vomiting or diarrhea. No other complaints or concerns at this time MD complaint: Nausea and vomiting Onset (ago): day(s) Radiation: non-radiation Relieving factors: none Associated symptoms: denies other symptoms Treatments prior to arrival: none Related Data Home Medications ?Medication ?Instructions ?Recorded ?Confirmed enalapril maleate 10 mg tablet 10 mg PO DAILY 08/22/23 08/22/23 hydrochlorothiazide 25 mg tablet 25 mg PO DAILY 08/22/23 08/22/23 lactulose 10 gram/15 mL oral 15 ml PO DAILY 08/22/23 08/22/23 solution methadone 40 mg soluble tablet 40 mg PO DAILY 08/22/23 08/22/23 Previous Rx's ?Medication ?Instructions ?Recorded docusate sodium 100 mg capsule 100 mg PO BID #20 caps 05/23/22 (Colace) ibuprofen 800 mg tablet 800 mg PO Q8H PRN pain #30 tabs 05/23/22 diphenhydramine HCl 25 mg capsule 50 mg (2 x 25 mg) PO QID PRN 11/27/22 (Benadryl) allergic reaction #30 caps epinephrine 0.3 mg/0.3 mL 0.3 mg (0.3 mL) IM Q4H PRN 06/13/23 injection, auto-injector (EpiPen) anaphylaxis #2 ea bisacodyl 5 mg tablet,delayed 20 mg (4 x 5 mg) PO ONCE PRN 08/22/23 release (Dulcolax (bisacodyl)) colonoscopy prep 1 day #4 tabs polyethylene glycol 3350 17 238 g PO ONCE PRN laxative effect 08/22/23 gram/dose oral powder (Miralax) 1 day #238 grams Allergies Allergy/AdvReac Type Severity Reaction Status Date / Time No Known Allergies Allergy Verified 10/30/23 10:57 Review of Systems 2 Review of Systems: Yes all other systems are reviewed and are negative Constitutional: Constitutional: Reports as per [facility] Past Medical History Attestation statement: The following information was validated with the patient. Family History Family History Mother Colon cancer Social History Social History Household Members Other:: / kids Alcohol intake: former Substance Use Type: Heroin Advance Directives: No Advance Directives Information Provided: No Current occupational status: disabled Physical Exam ED Vital Signs: Vital Signs - 24 hr 10/30/23 10:55 Temperature 97.6 F Pulse Rate 65 Respiratory Rate 16 Blood Pressure 127/52 L Pulse Oximetry 100 Oxygen Delivery Method Room Air BMI result Body Mass Index 27.3 Const General: cooperative, comfortable and no acute distress Orientation/consciousness: patient oriented x3 Limitations: no limitations HENMT Head: Yes normal to inspection, Yes normocephalic and Yes atraumatic Ears: hearing grossly normal bilaterally General nose exam: Normal external nose present Face and sinus: Yes normal facial exam Mouth: Normal oral and palatal mucosa present, oropharynx normal and moist mucous membranes Throat: Yes posterior oropharynx normal Eyes General: appearance normal, both eyes and all related structures Eyelids: Yes eyelids normal Conjunctivae: conjunctivae normal Sclerae: sclerae normal Pupils: Equal, round and reactive pupils present EOM: EOMs intact bilaterally Neck Neck: Yes normal visual inspection, Yes full ROM and Yes no lymphadenopathy Lymphatic: no lymphadenopathy noted Chest Chest palpation & inspection: normal inspection of the chest Resp Effort & Inspection: normal respiratory effort and able to speak in complete sentences Auscultation: clear to auscultation bilaterally, no crackles, no rales, no rhonchi and no wheezes Cardio Rate: regular rate Rhythm: regular rhythm Heart sounds: S1 normal heart sound present and S2 normal heart sound present GI Other: Abdomen is soft, nontender, nondistended Inspection: Yes normal to inspection Skin General skin exam: no rashes or lesions noted Trauma: no lacerations or abrasions Wounds: no wounds Neuro General: patient oriented x3 and moves all extremities Cranial nerves: Yes Equal, round and reactive pupils present Extrem General: Yes normal to inspection Right upper extremity: normal to inspection Left upper extremity: normal to inspection Right lower extremity: normal to inspection Left lower extremity: normal to inspection Course Reevaluation(s) Reevaluation #1: Labs return, reassuring. He is eating and drinking and is asymptomatic, pt stable for d/c. Medical Decision Making Medical Decision Making [facility] Narrative: This is a 48-year-old male who presents emergency department with complaints of nausea and vomiting since today. He was at methadone clinic and developed nausea and vomiting. He ate pizza and rice and beans last night. Denies any sick contacts. On my initial assessment, he is well-appearing, he appears to be in no distress. Abdomen is soft and nontender. Speaking in full sentences. He states that he is feeling much better, and he has no current symptoms at this moment. He is requesting to be discharged. Plan: Labs, viral swabs, p.o. challenge Differential Diagnosis Differential Diagnoses: The differential diagnosis associated with the presentation includes Gastritis, gastroenteritis, electrolyte derangement Admission/Observation Consideration of admission/observation: Escalation of care including admission/observation considered Escalation of care including admission/observation considered however given workup today not warranted at this time. Lab Data [facility] Lab Attestation statement: I reviewed the patient's lab results. Slight leukocytosis at 14, likely reactive, chemistry a slight hyperglycemia at 132, otherwise nondiagnostic. 10/30/23 12:29 10/30/23 12:29 Labs: Lab Results 10/30/23 10/30/23 10/30/23 Range/Units 10:55 12:13 12:29 WBC 14.0 H (4.8-10.8) X10*3/uL RBC 4.29 L (4.60-5.80) X10*6/uL Hgb 14.0 (14.0-18.0) g/dl Hct 41.0 L (42.0-52.0) % MCV 95.6 (80.0-98.0) fL MCH 32.6 (27.0-33.0) pg MCHC 34.1 (31.0-36.0) g/dl RDW 12.4 (11.0-16.0) % Plt Count 136 L (160-400) X10*3/uL MPV 11.5 (9.4-12.4) fL Immature Gran % (Auto) 0.3 (0.0-0.4) % Neut % (Auto) 86.6 H (45-73) % Lymph % (Auto) 8.6 L (20-40) % [facility] [place] [facility] % (Auto) 3.8 (2-11) % Eos % (Auto) 0.5 (0-4) % Baso % (Auto) 0.2 (0-2) % Lymph # (Auto) 1.2 (1.2-4.9) X10*3/uL [facility] # (Auto) 0.5 (0.1-1.2) X10*3/uL Eos # (Auto) 0.1 (0.0-0.4) X10*3/uL Baso # (Auto) 0.0 (0.0-0.2) X10*3/uL Abs Immat Gran (auto) 0.04 H (0.00-0.03) X10*3/uL Absolute Neuts (auto) 12.1 H (2.0-8.3) x10*3/uL Absolute Nucleated RBC 0.000 (0.0-0.012) X10*3/uL Nucleated RBC % (auto) 0.0 (0.0-0.2) /100WBC Sodium 141 (135-145) mmol/L Potassium 4.2 (3.3-5.1) mmol/L Chloride 110 H (96-108) mmol/L Carbon Dioxide 24 (22-29) mmol/L Anion Gap 11 L (12-20) BUN 15 (9-16) mg/dL Creatinine 0.91 (0.5-1.4) mg/dL Estim Creat Clear Calc 92.6 Estimated GFR > 60 POC Glucose 132 H (60-115) mg/dL Random Glucose 103 (60-115) mg/dL Calcium 9.7 D (8.4-10.2) mg/dL Total Bilirubin 0.7 (0.0-1.0) mg/dL Direct Bilirubin 0.2 (0.0-0.5) mg/dL AST 18 (5-37) U/L ALT 12 (0-40) U/L Alkaline Phosphatase 38 L (39-117) U/L Total Protein 7.5 (6.5-8.0) g/dL Albumin 4.2 (3.5-5.0) g/dL Lipase 16 (8-78) U/L Influenza Type A (PCR) NEGATIVE (Negative) Influenza Type B (PCR) NEGATIVE (Negative) RSV RNA Qual (PCR) NEGATIVE (Negative) SARS-CoV-2 RNA (RT-PCR) NEGATIVE (Negative) Radiology Impression Discussion of test interpretation with radiology: I have reviewed the radiologist's reading. External Record Review External record reviewed: Inpatient record, Office record, Outpatient record, Prior outpatient labs, Prior outpatient radiology, Primary care record and Outside ED record Discharge Plan Discharge Clinical Impression: Nausea & vomiting Patient Disposition: Home, Self-Care Instructions: Acute Nausea and Vomiting (ED) Additional Instructions: You were seen in the emergency department after nausea and vomiting at her methadone clinic. Your labs were reassuring. Drink plenty of fluids get plenty of rest. Avoid spicy or fried foods. If any new or worsening symptoms occur including but not limited to chest pain, shortness of breath, abdominal pain, vomiting, please return for re-evaluation. Prescriptions: No Action docusate sodium [Colace] 100 mg capsule 100 mg PO BID Qty: 20 0RF ibuprofen 800 mg tablet 800 mg PO Q8H PRN (Reason: pain) Qty: 30 0RF diphenhydramine HCl [Benadryl] 25 mg capsule 50 mg PO QID PRN (Reason: allergic reaction) Qty: 30 0RF epinephrine [EpiPen] 0.3 mg/0.3 mL auto-injector 0.3 mg IM Q4H PRN (Reason: anaphylaxis) Qty: 2 0RF Rx Instructions: Use only for severe allergic reaction lactulose 10 gram/15 mL solution 15 ml PO DAILY hydrochlorothiazide 25 mg tablet 25 mg PO DAILY enalapril maleate 10 mg tablet 10 mg PO DAILY methadone 40 mg tablet,soluble 40 mg PO DAILY bisacodyl [Dulcolax (bisacodyl)] 5 mg tablet,delayed release (DR/EC) 20 mg PO ONCE PRN (Reason: colonoscopy prep) 1 Days Qty: 4 0RF Rx Instructions: Day before procedure @ 12 noon Take 4 tablets by mouth followed by large glass of water polyethylene glycol 3350 [Miralax] 17 gram/dose powder 238 g PO ONCE PRN (Reason: laxative effect) 1 Days Qty: 238 0RF Rx Instructions: Take as directed by mouth the day before your procedure. Interventions: ED Discharge Assessment Last Done: 10/30/23 13:03 Discharge Date/Time: 10/30/23 13:04 Print Language: [place]ijani
[2023-10-30 12:33] LABS: MANUAL DIFF FLAG NO
[2023-10-30 12:37] LABS: Basophils Percent Auto 0.2 % (0-2); Eosinophils Absolute Auto 0.1 X10*3/uL (0.0-0.4); Eosinophils Percent Auto 0.5 % (0-4); Imm Gran Abs Auto 0.04 X10*3/uL (0.00-0.03); Imm Gran Pct Auto 0.3 % (0.0-0.4); Lymphocytes Absolute Auto 1.2 X10*3/uL (1.2-4.9); Lymphocytes Percent Auto 8.6 % (20-40); Mean Corpuscular HGB Conc 34.1 g/dl (31.0-36.0); Mean Corpuscular Hemoglobin 32.6 pg (27.0-33.0); Mean Corpuscular Volume 95.6 fL (80.0-98.0); Mean Platelet Volume 11.5 fL (9.4-12.4); Monocytes Absolute Auto 0.5 X10*3/uL (0.1-1.2); Monocytes Percent Auto 3.8 % (2-11); Neutrophils Absolute Auto 12.1 x10*3/uL (2.0-8.3); Neutrophils Percent Auto 86.6 % (45-73); Platelet Count 136 X10*3/uL (160-400); Red Blood Count 4.29 X10*6/uL (4.60-5.80); Red Cell Distribution Width 12.4 % (11.0-16.0)
[2023-10-30 12:49] LABS: Alanine Aminotransferase 12 U/L (0-40); Albumin Level 4.2 g/dL (3.5-5.0); Alkaline Phosphatase 38 U/L (39-117); Anion Gap 11 (12-20); Aspartate Amino Transferase 18 U/L (5-37); Bilirubin Direct 0.2 mg/dL (0.0-0.5); Bilirubin Total 0.7 mg/dL (0.0-1.0); Blood Urea Nitrogen 15 mg/dL (9-16); Calcium 9.7 mg/dL (8.4-10.2); Carbon Dioxide 24 mmol/L (22-29); Chloride 110 mmol/L (96-108); Creatinine Clr Calc Pharmacy 92.6; Estimated Glomerular Filt Rate > 60; Glucose Random 103 mg/dL (60-115); Lipase 16 U/L (8-78); Potassium 4.2 mmol/L (3.3-5.1); Sodium 141 mmol/L (135-145); Total Protein 7.5 g/dL (6.5-8.0)
[2023-10-30 13:03] VITALS: BP 127/52; PULSE 65; RESP 16; TEMP 36.4; O2SAT 100
[2023-10-30 13:14] LABS: Influenza A PCR NEGATIVE (Negative); Influenza B PCR NEGATIVE (Negative); Resp Syncy Virus RNA Qual PCR NEGATIVE (Negative); SARS COV2 PCR INHOUSE NEGATIVE (Negative)
== END 2023-10-30 13:04 | disposition home or self-care (01) ==
PROVIDERS: Emergency Provider Emergency Medicine; PCP Internal Medicine Geriatric Medicine
DX: R11.2 Nausea with vomiting, unspecified (principal); F11.20 Opioid dependence, uncomplicated; Z03.818 Encounter for observation for suspected exposure to other biological agents ruled out
CPT/HCPCS: 0241U; 80048; 80076; 82947; 83690; 85025; 99282; 99283

== ENCOUNTER → 2023-12-25 09:51 | Day surgery (SDC) | payer MEDICAID, SELFPAY ==
--- NOTE | 2023-12-22 10:32 | HO.ANESPROP2 ---
HPI - Anesthesia Eval Consult details Narrative: Cx'd DOS d/t IVDU 12/24/23 . 48yo M for Colonoscopy Methadone daily PMFSH Active Problems Active Problems: All Active Problems Substance abuse (Acute) Chronic constipation (Acute) Family history of colon cancer (Acute) Family History Family History Mother Colon cancer Social History Social History Household Members Other:: / kids Alcohol intake: former Patient Tobacco Use Status: Current everyday Tobacco user Cigarette Packs Per Day: 4 Cigarettes Per Day: 80.0 Use of substances other than those prescribed or required for medical reasons: Yes Substance Use Type: Heroin Substance Use Type Other:: methadone treatment Are you DNR?: No Advance Directives: No Advance Directives Information Provided: Yes Current occupational status: disabled Meds Allergies Allergy/AdvReac Type Severity Reaction Status Date / Time No Known Allergies Allergy Verified 10/30/23 10:57 Home Medications ?Medication ?Instructions ?Recorded ?Confirmed ?Last Taken ?Type enalapril maleate 10 mg tablet 10 mg PO DAILY 08/22/23 08/22/23 Unknown History hydrochlorothiazide 25 mg tablet 25 mg PO DAILY 08/22/23 08/22/23 12/25/23 07:00 History lactulose 10 gram/15 mL oral 15 ml PO DAILY 08/22/23 08/22/23 Unknown History solution methadone 40 mg soluble tablet 40 mg PO DAILY 08/22/23 08/22/23 Unknown History Assessment and Plan Assessment Anesthesia Assessment: Chart Reviewed
[2023-12-25 10:17] VITALS: BMI 26.0
[2023-12-25 10:25] VITALS: BMI 26.0
--- NOTE | 2023-12-25 10:39 | PC.NURSE ---
Procedure cancelled. Pt used Heroin last evening, Methadone this am. To be rescheduled
== END ==
LOC: HO.SSS 09:52
PROVIDERS: PCP Internal Medicine Geriatric Medicine; Visit Provider Internal Medicine Gastroenterology
DX: K59.09 Other constipation (principal); Z53.09 Procedure and treatment not carried out because of other contraindication; Z80.0 Family history of malignant neoplasm of digestive organs; F11.90 Opioid use, unspecified, uncomplicated